=== PATIENT | female | born 1945 | race Caucasian/White ===

== ENCOUNTER → 2019-08-12 10:08 | Outpatient (CLI) | payer MEDICARE, SELFPAY ==
--- NOTE | ~2019-08-12 | XR_ITS ---
EXAMINATION: XR knee RT min 4V DATE: 08/12/2019 10:28 INDICATION: Right knee pain. TECHNIQUE: 5 views of right knee were obtained. COMPARISON: None. FINDINGS: Bone alignment is normal. No fracture. There is mild osteoarthritis of medial compartment. There is chondrocalcinosis of the menisci. No knee joint effusion. IMPRESSION: 1. Mild right knee osteoarthritis. Reviewed, dictated and finalized at location A. 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
== END ==
PROVIDERS: PCP Physician Assistant Medical; Visit Provider Physician Assistant Medical
DX: M17.11 Unilateral primary osteoarthritis, right knee (principal)
CPT/HCPCS: 73564

== ENCOUNTER 2019-09-23 06:34 | Outpatient (CLI) | payer MEDICARE, SELFPAY ==
--- NOTE | ~2019-09-23 | MR_ITS ---
EXAMINATION: MR knee RT wo con DATE: 09/23/2019 07:28 INDICATION: Right knee pain. TECHNIQUE: Magnetic resonance imaging (MRI) of the right knee was performed without intravenous contr ast. Sequences included axial PD-weighted FS FSE, coronal PD-weighted FSE and PD-weighted FS FSE, sag ittal PD-weighted FSE, and sagittal T2-weighted FS FSE. COMPARISON: Right knee radiographs 08/12/2019 FINDINGS: Medial compartment: There is a complex tear involving body and posterior horn of medial meniscus. There is deep partial t hickness cartilage loss of femoral condyle involving the central and medial articular surface. There is deep partial thickness cartilage loss of tibial condyle involving the medial articular surface whe re there is a subchondral insufficiency fracture characterized by a low signal fracture line and surr ounding bone marrow edema. Lateral compartment: Lateral meniscus is normal. Lateral compartment cartilage is normal. Patellofemoral compartment: There is deep partial thickness cartilage loss involving patellar medial and lateral facets and media n ridge with mild subchondral edema-like marrow signal intensity. There is cartilage surface irregula rity of trochlea. Ligaments and tendons: The anterior and posterior cruciate ligaments are normal. There are changes of prior sprains of media l collateral ligament and fibular collateral ligament characterized by thickening and increased signa l intensity proximally. There is mild patellar tendinopathy. Fluid: There is no knee joint effusion. There is a small Dupree's cyst. IMPRESSION: 1. Subchondral insufficiency fracture of medial tibial condyle. 2. Moderate chondrosis of medial and patellofemoral compartments. 3. Tear of medial meniscus. Reviewed, dictated and finalized at location A.
== END 2019-09-23 06:35 | disposition home or self-care (01) ==
PROVIDERS: PCP Family Medicine; Visit Provider Orthopaedic Surgery
DX: S83.241A Other tear of medial meniscus, current injury, right knee, initial encounter (principal); X58.XXXA Exposure to other specified factors, initial encounter
CPT/HCPCS: 73721

== ENCOUNTER 2019-09-29 13:04 | Outpatient (CLI) | payer MEDICARE, SELFPAY ==
--- NOTE | 2019-09-29 13:50 | ECG_ITS ---
Measurements Intervals [place] Rate: 78 P: 58 [place]: 159 QRS: -21 QRSD: 85 T: 15 QT: 367 QTc: 418 Interpretive Statements SINUS RHYTHM LOW QRS VOLTAGE IN PRECORDIAL LEADS VOLTAGE CRITERIA FOR LVH BORDERLINE R WAVE PROGRESSION, ANTERIOR LEADS BASELINE ARTIFACT- II, III, AVL, AVF, V1-V2 BORDERLINE ECG Electronically Signed On 09-29-2019 14:07:28 CDT by Luis Enrique Pardo D.O.
== END 2019-09-29 13:05 | disposition home or self-care (01) ==
LOC: ANHSURGERY 13:08
PROVIDERS: PCP Family Medicine; Visit Provider Orthopaedic Surgery
DX: E78.00 Pure hypercholesterolemia, unspecified (principal); R94.31 Abnormal electrocardiogram [ECG] [EKG]
CPT/HCPCS: 93005

== ENCOUNTER 2019-12-19 00:07 | Outpatient (CLI) | payer MEDICARE, SELFPAY ==
[2019-12-19 15:54] LABS: SARS-CoV-2 RNA PCR Negative
== END 2019-12-19 00:08 | disposition home or self-care (01) ==
LOC: ANHCOVIDDT 00:07
PROVIDERS: PCP Family Medicine; Visit Provider Orthopaedic Surgery
DX: Z01.812 Encounter for preprocedural laboratory examination (principal); Z20.828 Contact with and (suspected) exposure to other viral communicable diseases
CPT/HCPCS: 87635; C9803; U0003

== ENCOUNTER 2019-12-22 03:10 | Day surgery (SDC) | payer MEDICARE, SELFPAY ==
[2019-09-29 13:33] VITALS: BMI 23.8
[2019-12-15 13:31] VITALS: BMI 23.8
--- NOTE | 2019-12-15 13:35 | PC.NURSE ---
PATIENT STATES NO CHANGE IN HEALTH HX FROM LAST INTERVIEW ON 09/29/19
[2019-12-22] VITALS (8 sets, daily range): BP systolic 138–170; BP diastolic 67–96; PULSE 72–109; RESP 14–22; TEMP 36.2–36.5; O2SAT 97–100
[2019-12-22] MEDS: LACTATED RINGERS 1,000 ML 30 ML IV CONT ×2 (12:10→14:44)
--- NOTE | 2019-12-22 12:53 | WPDANESEPPF ---
Anes - Initial Pre Proc Eval Procedure: Operation Date: 12/22/19 13:30 Proposed Procedures p Right Knee Arthroscopy, Partial Medial Meniscectomy - Hudson Angulo MD Date/Time: 12/22/19 12:53 Surgeon: Hudson Angulo MD Pre Op Diagnosis: Right Knee Medial Meniscus Tear Patient Data Age: 74 Gender: F Height: 5 ft Weight: 55.7 kg Last Vital Signs Temp 97.6 F 12/22/19 12:26 Pulse 77 12/22/19 12:26 Resp 16 12/22/19 12:26 BP 145/67 H 12/22/19 12:26 Pulse Ox 99 12/22/19 12:26 Allergies Allergy/AdvReac Type Severity Reaction Status Date / Time No Known Allergies Allergy Mild Verified 12/22/19 11:42 Home Medications Medication Instructions Recorded Confirmed Type cyclosporine 0.05 % eye drops in a 1 drop EACH EYE Q12H 06/18/19 12/22/19 History dropperette fluticasone propionate 50 2 spray NASAL DAILY 06/18/19 12/22/19 History mcg/actuation nasal spray,suspension simvastatin 20 mg tablet 20 mg PO HS 06/18/19 12/22/19 History aspirin 81 mg tablet,delayed 81 mg PO DAILY 08/26/19 12/22/19 History release calcium-vitamin D3-vitamin K 500 1 tablet PO HS 08/26/19 12/22/19 History mg-100 unit-40 mcg chewable tablet cholecalciferol (vitamin D3) 50 50 mcg PO HS 08/26/19 12/22/19 History mcg (2,000 unit) capsule vit C,N-Wk-fmpxu-lutein-zeaxan 1 tablet PO BID 09/29/19 12/22/19 History [PreserVision AREDS-2] levothyroxine 88 mcg tablet 88 mcg PO DAILY #30 tablet 10/01/19 12/22/19 Rx acetaminophen [Tylenol Arthritis 650 mg PO Q12H 12/22/19 12/22/19 History Pain] Patient hx anesthesia problems: none Family hx anesthesia problems: none PMFSH Past Medical History Medical History (Updated 12/22/19 @ 12:47 by Joseph Harp MD) Cataract (09/21/17) 10/10/2017 Other specified acquired hypothyroidism Pure hypercholesterolemia, unspecified Surgical History Surgical History H/O thyroidectomy (2000) 2000 H/O ureterostomy (2011) H/O: hysterectomy (1990) Total History of breast biopsy 1989 Hx of cholecystectomy (1994) 1997 Social History Social History Smoking status: Never smoker Alcohol intake: current Additional living arrangements comments: -Ha Frye Additional occupation/education comments: [employer] Final PreProcedure Day of Procedure 12/22/19 12:53 Patient weight: normal Heart: regular rate and rhythm Lungs: clear to auscultation Airway: Mallampati scale class II Neurological: alert and oriented Last oral intake: >/= 8 hours ASA classification: II Emergent: no Anesthetic plan: proceed Anesthesia type and monitoring: general LMA and standard monitoring Informed Consent: The patient's anesthetic plan and its attendant risks and benefits were discussed with the patient/family/POA. Questions were solicited and answers provided to the satisfaction of the patient/family/POA.
--- NOTE | 2019-12-22 13:16 | WPDHPUPDATE1 ---
History and Physical Update Update Date/Time: 12/22/19 13:16 History and Physical has been reviewed, including an updated exam of the patient. There are NO changes in the patient's condition. Risks, benefits, and alternatives have been discussed and questions answered. Patient agrees to proceed with procedure.
--- NOTE | 2019-12-22 13:23 | SUR.PREOP ---
Up to bathroom.
[2019-12-22] MEDS: ceFAZolin 2 GM/D5W 50 ML 2 GM/50 ML BAG IVPB (13:50)
--- NOTE | 2019-12-22 14:59 | PM.PROC ---
Procedure Note - Detailed Date of procedure: 12/22/19 Pre-op diagnosis: Right Knee Medial Meniscus Tear Post-op diagnosis: same Procedure performed: Right knee arthroscopy with partial medial meniscectomy Description of procedure: The patient was identified and proper site identified. She was taken back to the operating room and transferred to the OR table placing her supine taking care to pad her torso and extremities. After general anesthetic induction and intubation a nonsterile tourniquet was placed high on the right thigh. Right lower extremity was position, prepped and draped in the usual sterile fashion. 10 cc of 0.25% Marcaine was injected into the subcutaneous tissue in the area of the portals. Portals were established in the arthroscopy was carried out. The findings were as follows: Articular cartilage in the anterior compartment showed extensive areas of degenerative changes on both the patellar and femoral side. These were grade 3 and grade 4. There was grade 3 changes in the medial compartment with complex tearing of the medial meniscus. Lateral articular meniscal cartilage was in decent shape. Anterior posterior cruciate ligaments were in continuity. Portion of the medial infrapatellar fat pad was debrided and then cautery used for hemostasis. There was complex tearing of the medial meniscus which was contoured back to a stable rim with a combination of basket forceps and shaver. At the completion of the procedure the ArthroCare Wand was used for hemostasis. The knee was flushed with a copious amount of arthroscopic fluid and equipment was removed. Portals were closed with three O nylon suture and sterile dressing was applied. She tolerated the procedure well. She was awakened, extubated and taken to recovery area in stable condition. There were no known intraoperative complications. It estimated blood loss was negligible. She received perioperative antibiotics. Anesthesia: GLMA Surgeon: Hudson Angulo MD Estimated blood loss (mL): 10 Tourniquet time (min): 0 Drains: No Packing: No Pathology: none sent Complications: No immediate complications Condition: stable Disposition: PACU
== END 2019-12-22 16:55 | disposition home or self-care (01) ==
PROVIDERS: PCP Family Medicine; Visit Provider Orthopaedic Surgery
PROC: (CPT 29870; principal; 2019-12-22 13:30)
DX: M23.331 Other meniscus derangements, other medial meniscus, right knee (principal); M94.261 Chondromalacia, right knee; E78.00 Pure hypercholesterolemia, unspecified; Z79.82 Long term (current) use of aspirin; E89.0 Postprocedural hypothyroidism
CPT/HCPCS: 29881; J0690; J1100; J2405; J2704; J3010; J7120

== ENCOUNTER 2020-01-05 09:45 | Outpatient (RCR) | payer MEDICARE, SELFPAY ==
--- NOTE | 2019-12-24 13:52 | PTOPEVAL ---
PHYSICAL THERAPY EVALUATION AND PLAN OF CARE Thank you for referring Ade Frye to [facility]. I recommend Ade participate in physical therapy 2x/week for 2 weeks followed by 1x/week for 2 more weeks. Please review, sign, date and return this plan of care [place]. I agree with and certify that the following plan of care is medically necessary. Referring Physician Date Attending Provider: Hudson Angulo MD Evaluation Diagnosis right knee arthroscopy/ menisectomy Onset 12/22/2019 Subjective Information 2 days ago received medial Query Text:As Reported By Patient/ menisectomy and arthroscpy. Family Reports no pain today, only taking OTC NSAIDS. Pain Assessment Timing of Pain Assessment Timing of Pain Assessment Assessment Self Report Self Report Pain Level 0 Pain Score Pain Score 0: Self Report Lower Extremity Range of Motion Knee Range of Motion Right Knee Flexion Range of Motion - Active 122 Knee Extension Range of Motion - Active 0 Query Text: Lower Extremity Muscle Strength Testing General Lower Extremity Strength Reason Not Measured WNL/Left,WNL/Right Gross Lower Extremity Strength good quad contraction, tested 4+/5 to MMT Extremity Circumference Assessment Circumference Assessment Location Right Body Part Knee Site Descriptor ([place]) patellar base Circumference (cm) 36 Noninvolved Side Circumference (cm) 36 Balance Assessment CARTY Balance Evaluation Total Score 49/56 Gait Pattern No Deviations/Normal Stair Climbing Assessment Stair Climbing Assessment Stair Climbing Assistive Devices Railings Number of Steps Climbed (Steps) 4 Number of Repetitions (Repetitions) 4 Technique Alternating Steps Stair Climbing Direction Both Up and Down Stair Climbing Ability Independent PT Clinical Summary Kori is a 74 yo female presenting to outpatient physical therapy 2 days s/p right knee arthroscopy with medial menisectomy. She presents today with mildly decreased right knee ROM as well as mildly decreased balance with decreased strength. Will benefit from skilled PT to address these findings as well as provide patient with home exercise program and education. PT Services Indicated
--- NOTE | 2020-01-19 07:57 | PCPTNOTE ---
PHYSICAL THERAPY DISCHARGE Attending Provider: Hudson Angulo MD Patient:Ade Frye Date of :1945 Cheryl attended 4 visits for physical therapy following right knee arthroscopy. She cancelled her remaining appointments as physician released her from therapy. Her account will be discharged at this time. Thank you for referring this patient to [facility]. Please review, sign, date and return this discharge summary [place]. I have been updated about the patient's current status and I agree with discharge from the above service at this time. Referring Physician Date
== END 2020-01-27 13:46 | disposition home or self-care (01) ==
LOC: ANHPT 09:45
PROVIDERS: PCP Family Medicine; Visit Provider Orthopaedic Surgery
DX: M25.561 Pain in right knee (principal); Z98.890 Other specified postprocedural states
CPT/HCPCS: 97110; 97161

== ENCOUNTER 2020-07-06 08:46 | Outpatient (CLI) | payer MEDICARE, SELFPAY ==
--- NOTE | ~2020-07-06 | MM_ITS ---
EXAMINATION: MM screening dante BI w tonny HISTORY: Screening mammogram TECHNIQUE: Craniocaudal and mediolateral oblique 3-D tomosynthesis images were obtained and synthetic 2-D images were generated. CAD analysis was submitted and interpreted. COMPARISON: 07/03/2019, 07/01/2018, 06/28/2017 bilateral digital screening mammogram examinations BREAST PARENCHYMAL COMPOSITION: Stable mild fibroglandular asymmetry. There are scattered bilateral b enign calcifications. FINDINGS: There is stable architectural distortion in the upper left breast, likely related to prior reportedly benign left breast biopsy. Occasional bilateral benign calcifications. There is no evidence of suspicious mass, calcification, o r architectural distortion to suggest malignancy in either breast. There has been no suspicious inter luz change. IMPRESSION: 1. No mammographic evidence of malignancy. 2. Recommend routine screening mammography in one year. BI-RADS Category 2: Benign finding(s). Reviewed, dictated and finalized at location A. ITY CONTROL
--- NOTE | ~2020-07-06 | DEXA_ITS ---
Bone Density Report Name: Ade Frye Age: 75 Sex: Female Ethnicity: White Date of : 1945 Indication: osteopenia; height loss; hysterectomy; Referring Provider: Jerry Barrios Study: Bone densitometry was performed. Exam Date: July 06, 2020 Accession number: [id number] Bone Density: Region BMD T-score Z-score Classification AP Spine (L1-L4) 0.933 -1.0 1.5 Normal Femoral Neck (Left) 0.684 -1.5 0.7 Osteopenia Total Hip (Left) 0.836 -0.9 1.0 Normal Total Hip Bilateral Avg 0.843 -0.8 1.1 Normal Femoral Neck (Right) 0.670 -1.6 0.6 Osteopenia Total Hip (Right) 0.848 -0.8 1.1 Normal World Health Organization criteria for BMD impression classify patients as: Normal (T-score at or above -1.0), Osteopenia (T-score between -1.0 and -2.5), or Osteoporosis (T-score at or below -2.5). 10-year Fracture Risk(1): Major Osteoporotic Fracture 13% Hip Fracture 3.0% Reported Risk Factors: [place] (), Neck BMD=0.670, BMI=24.8 (1) FRAX(R) Version 3.08. Fracture probability calculated for an untreated patient. Fracture probability may be lower if the patient has received treatment. Previous Exams: Region Exam Age BMD T-score BMD Change BMD Change Date g/cm2 vs Baseline vs Previous AP Spine(L1-L4) 07/06/2020 75 0.933 -1.0 0.012(1.3%)# 0.010(1.1%) 07/01/2018 73 0.922 -1.1 0.001(0.1%)# 0.000(0.0%) 06/26/2016 71 0.922 -1.1 0.001(0.1%)# -0.013(-1.4%) 05/26/2014 69 0.935 -1.0 0.014(1.5%)# 0.024(2.6%)# 05/15/2012 67 0.911 -1.2 -0.010(-1.1%)# -0.009(-1.0%)# 04/11/2010 65 0.920 -1.2 -0.001(-0.1%) 0.032(3.6%)* 04/09/2008 63 0.888 -1.4 -0.033(-3.6%)* -0.033(-3.6%)* 06/21/2006 61 0.921 -1.1 Total Hip(Left) 07/06/2020 75 0.836 -0.9 -0.041(-4.6%)# -0.011(-1.3%) 07/01/2018 73 0.847 -0.8 -0.030(-3.4%)# -0.006(-0.7%) 06/26/2016 71 0.853 -0.7 -0.024(-2.8%)# 0.003(0.3%) 05/26/2014 69 0.850 -0.8 -0.027(-3.1%)# 0.004(0.4%)# 05/15/2012 67 0.846 -0.8 -0.031(-3.5%)# -0.037(-4.2%)# 04/11/2010 65 0.884 -0.5 0.007(0.8%) -0.013(-1.5%) 04/09/2008 63 0.897 -0.4 0.020(2.3%) 0.020(2.3%) 06/21/2006 61 0.877 -0.5 Total Hip(Right) 07/06/2020 75 0.848 -0.8 -0.080(-8.6%)# -0.057(-6.3%)* 07/01/2018 73 0.905 -0.3 -0.023(-2.5%)# -0.006(-0.7%) 06/26/2016 71 0.912 -0.2 -0.017(-1.8%)# -0.002(-0.3%) 05/26/2014 69 0.914 -0.2 -0.014(-1.5%)# -0.001(-0.1%)# 05/15/2012 67 0.915 -0.2 -0.013(-1.4%)# -0.032(-3.4%)# 04/11/2010 65 0.947 0.0 0.019(2.0%) 0.017(1.8%) 04/09/2008 63 0.930 -0.1 0.002(0.
== END 2020-07-06 08:47 | disposition home or self-care (01) ==
LOC: ANHIMG 08:48
PROVIDERS: PCP Family Medicine; Visit Provider Family Medicine
DX: Z12.31 Encounter for screening mammogram for malignant neoplasm of breast (principal); Z78.0 Asymptomatic menopausal state
CPT/HCPCS: 77063; 77067; 77080

== ENCOUNTER 2021-05-30 12:43 | Outpatient (CLI) | payer MEDICARE, SELFPAY ==
--- NOTE | ~2021-05-30 | MR_ITS ---
EXAMINATION: MR knee LT wo con DATE: 05/30/2021 13:47 INDICATION: Left knee pain TECHNIQUE: Magnetic resonance imaging (MRI) of the left knee was performed without intravenous contra st. Sequences included coronal PD-weighted FSE, coronal PD-weighted FS FSE, sagittal T2-weighted FSE , sagittal PD-weighted FS FSE and axial PD weighted fat saturated FSE. COMPARISON: Left knee radiographs dated 04/27/2021 FINDINGS: Medial compartment: Complex tear of the posterior body and posterior horn of the medial meniscus. Partial-thickness carti miryam loss with smooth chondral surface along the margins of the medial tibial plateau and along the w eightbearing medial femoral condyle. There is underlying mild cortical irregularity along the articul ar cortex at the central to posterior weightbearing medial femoral condyle. Lateral compartment: Lateral meniscus is normal. Full-thickness cartilage loss with chondral surface regularity and partia l-thickness fissuring at the central to posterior aspect of the lateral tibial plateau. Partial thick ness cartilage loss with smooth chondral surface along the weightbearing lateral femoral condyle. Sma ll region of minimal underlying cortical irregularity at the central weightbearing lateral femoral co ndyle. Patellofemoral compartment: Partial-thickness patellar cartilage loss which involves greater than 50% the cartilage thickness luis armando ng portions of the apical ridge and medial facet. Tiny foci of subarticular edema at the apical ridge . Partial-thickness cartilage loss with smooth chondral surface along the lateral trochlea. There is cartilage swelling and partial-thickness fissuring at the medial trochlea. Ligaments and tendons: Anterior and posterior cruciate ligaments are normal. The fibular collateral ligament is normal. Ther e is mild thickening and mild increased signal of the proximal medial collateral ligament consistent with moderate grade sprain. This age-indeterminate with mild surrounding edema which could be related to acute sprain in the appropriate clinical setting or more likely reactive edema related to the adj acent medial meniscal tear. The extensor mechanism is normal. The visualized medial and lateral hamst ring tendons as well as the iliotibial band are normal. Fluid: Minimal right knee joint effusion at the suprapatellar pouch. No loose osteochondral bodies identifie d. Small Dupree's cyst. Osseous/other: Bone marrow signal is normal aside from the previous noted tiny focus of subarticular edema at the pa tellar apical ridge. No fracture or pathologic marrow replacing process. IMPRESSION: 1. Complex medial meniscal tear. 2. Mild tricompartmental osteoarthritis with regions of moderate to high-grade chondromalacia in all 3 compartments. 3. Age-indeterminate moderate grade sprain of the proximal medial collateral ligament. 4. Small Dupree's cyst. Reviewed, dictated and finalized at location A. PROFESSIONAL IMPRESSION: 1. Complex medial meniscal tear. 2. Mild tricompartmental osteoarthritis with regions of moderate to high-grade chondromalacia in all 3 compartments. 3. Age-indeterminate moderate grade sprain of the proximal medial collateral li gament. 4. Small Dupree's cyst.
== END 2021-05-30 12:44 | disposition home or self-care (01) ==
PROVIDERS: PCP Family Medicine; Visit Provider Orthopaedic Surgery
DX: M71.22 Synovial cyst of popliteal space [Baker], left knee (principal); M17.12 Unilateral primary osteoarthritis, left knee; S83.232D Complex tear of medial meniscus, current injury, left knee, subsequent encounter; X58.XXXD Exposure to other specified factors, subsequent encounter
CPT/HCPCS: 73721

== ENCOUNTER 2021-07-05 07:51 | Outpatient (CLI) | payer MEDICARE, SELFPAY ==
--- NOTE | 2021-07-05 08:00 | ECG_ITS ---
Measurements Intervals [place] Rate: 80 P: 61 [place]: 156 QRS: -22 QRSD: 89 T: 29 QT: 359 QTc: 415 Interpretive Statements SINUS RHYTHM LOW QRS VOLTAGE IN PRECORDIAL LEADS POOR R WAVE PROGRESSION, ANTERIOR LEADS BORDERLINE T WAVE ABNORMALITY- ANTERIOR LEADS BASELINE ARTIFACT- I, III, AVR, AVL BORDERLINE ECG Electronically Signed On 07-05-2021 8:33:24 COLD TYPE ARTIST by Luis Enrique Pardo D.O.
== END 2021-07-05 07:52 | disposition home or self-care (01) ==
LOC: ANHSURGERY 07:56
PROVIDERS: PCP Family Medicine; Visit Provider Orthopaedic Surgery
DX: Z01.810 Encounter for preprocedural cardiovascular examination (principal); E78.00 Pure hypercholesterolemia, unspecified
CPT/HCPCS: 93005

== ENCOUNTER 2021-07-12 00:26 | Day surgery (SDC) | payer MEDICARE, SELFPAY ==
[2021-07-01 14:14] VITALS: BMI 24.8
--- NOTE | 2021-07-01 14:18 | PC.NURSE ---
Report to the Outpatient Waiting Room, entrance under the green pavilion located off [facility], at time __729 on date __07/12/21 . OR Time: . - You and your visitor will be asked a series of questions to screen for COVID 19 for your protection. - A mask is required within the hospital. - Only one visitor is allowed at this time. Patient visitors will be guided where to wait when not with patient. Preoperative COVID Testing Requirements: No COVID Test needed if: (proof is required; if not received patient will have Rapid Test prior to entry) - Patient has received COVID Vaccine at least 14 days prior to procedure date or - Patient has positive COVID test result within last 90 days of surgery date. COVID Test needed if above criteria is not met If not COVID vaccinated a COVID test must be conducted within 72 hours of surgery and patient is asked to isolate self from time of testing until procedure. You will go to the [facility] for your COVID testing. The [facility] site is located at the corner of [address] [facility]. You will only be called if COVID results are positive and your surgeon may reschedule your elective surgery date. Patients may have clear liquids (water, carbonated beverages, clear teas, apple juice) until 3 hours prior to surgery with a maximum of 20 ounces. - No food from midnight until time of surgery - Infants may have breast milk until 4 hours before surgery, infant formula 6 hours prior to surgery. - Children will be allowed to drink immediately following surgery. If applicable, please bring a bottle or sippy cup to assist with drinking. Juice, water, soda, and popsicles are readily available. For infants on formula, please bring formula the day of surgery. Pacifiers are allowed. Take the following medications with a SIP of water the morning of surgery: ____LEVOTHYROXINE, AND EYE DROPS Medications to discontinue per physician __ALL VITAMINS AND SUPPLEMENTS 3 DAYS PRE OP Date to take last dose__07/08/21 Please no make-up, nail pashto, hairspray, perfume, deodorant, or body powder the day of surgery. No jewelry (including any body piercings) or valuables the day of surgery, leave them at home. Please take a shower or bath the night before, or the morning of, surgery with an antibacterial soap. Wear comfortable, loose fitting clothing. Children are encouraged to wear pajamas. - Jewelry must be removed prior to entering the operating room. Rings and piercings that are not removed may be cut off. - The hospital will not accept responsibility for valuables. - Please leave all valuables, including medications, at home the day of surgery. If you are going home after surgery, a licensed courtesy van driver must drive you home. - NO public transportation without another adult. - We recommend that an adult stay with you for 24 hours following discharge. - We also recommend that you do not drive, make important decision, drink alcoholic beverages, or take any drugs that were not prescribed by your health care provider for at least 24 hours after your discharge time. For Pediatric surgeries, we recommend two adults accompany the child home (only one inside the building at this time). Follow any additional instructions given to you from your surgeon. Telephone instructions given to __PATIENT and asked if any additional questions and then verbalized understanding. Patient advised to call surgeon office or pre surgery nurse liaison [phone] if any additional questions.
--- NOTE | 2021-07-11 14:10 | WPDANESEPPF ---
Anes - Initial Pre Proc Eval Procedure: Operation Date: 07/12/21 09:30 Proposed Procedures p Left Knee Arthroscopy, Meniscectomy - Hudson Angulo MD Date/Time: 07/11/21 14:10 Surgeon: Hudson Angulo MD Pre Op Diagnosis: Left Knee Medial Meniscus Tear Patient Data Age: 76 Gender: F Height: 1.52 m Weight: 57.65 kg Allergies Allergy/AdvReac Type Severity Reaction Status Date / Time No Known Allergies Allergy Mild Verified 07/12/21 07:49 Home Medications Medication Instructions Recorded Confirmed Type cyclosporine 0.05 % eye drops in a 1 drop EACH EYE Q12H 06/18/19 07/12/21 History dropperette aspirin 81 mg tablet,delayed 81 mg PO DAILY 08/26/19 07/12/21 History release calcium-vitamin D3-vitamin K 500 2 tablet PO HS 08/26/19 07/12/21 History mg-100 unit-40 mcg chewable tablet cholecalciferol (vitamin D3) 50 50 mcg PO HS 08/26/19 07/12/21 History mcg (2,000 unit) capsule PreserVision AREDS-2 1 tablet PO BID 09/29/19 07/12/21 History acetaminophen [Tylenol Arthritis 650 mg PO Q6-8H 12/22/19 07/12/21 History Pain] levothyroxine 88 mcg tablet 88 mcg PO DAILY #30 tablet 09/28/20 07/12/21 Rx fluticasone propionate 50 See Rx Instructions .ROUTE 03/07/21 07/12/21 Rx mcg/actuation nasal .COMPLEX #16 ml spray,suspension denosumab 60 mg/mL subcutaneous 60 mg SUBCUT [id number] 04/27/21 07/12/21 History syringe simvastatin 20 mg tablet See Rx Instructions .ROUTE 05/06/21 07/12/21 Rx .COMPLEX #90 tablet cetirizine [Zyrtec] 10 mg PO HS 07/01/21 07/12/21 History Patient hx anesthesia problems: none Family hx anesthesia problems: none Results Review: All pre-operative results and documents have been reviewed as part of the pre-operative evaluation. [facility] Past Medical History Medical History (Updated 06/16/21 @ 09:25 by Hudson Angulo MD) Cataract (09/21/17) 10/10/2017 Other specified acquired hypothyroidism Pure hypercholesterolemia, unspecified Tear of medial meniscus of left knee Surgical History Surgical History H/O right knee surgery right knee scope december 2019 H/O thyroidectomy (2000) 2000 H/O ureterostomy (2011) H/O: hysterectomy (1990) Total History of breast biopsy 1989 Hx of cholecystectomy (1994) 1997 Family History Family History Father Diabetes mellitus, Onset Age: 72 Family history of obesity, Onset Age: 72 Cerebrovascular accident, Onset Age: 72 Social History Social History Alcohol intake: current Drinks per week: 3 Alcohol use details: occasional Living arrangements: with family Additional living arrangements comments: -Ha Frye Additional occupation/education comments: [employer] Spiritual care concerns: No Anes - Eval Final PreProcedure Day of Procedure 07/11/21 14:10 Patient weight: normal Heart: regular rate and rhythm Lungs: clear to auscultation and normal air movement Airway: Mallampati scale class II Neurological: alert and oriented Last oral intake: >/= 8 hours ASA classification: II Emergent: no Anesthetic plan: proceed Anesthesia type and monitoring: general LMA and standard monitoring Results Review: All pre-operative results and documents have been reviewed as part of the pre-operative evaluation. Informed Consent: The patient's anesthetic plan and its attendant risks and benefits were discussed with the patient/family/POA. Questions were solicited and answers provided to the satisfaction of the patient/family/POA.
[2021-07-12] VITALS (9 sets, daily range): BP systolic 128–161; BP diastolic 65–86; PULSE 72–92; RESP 12–19; TEMP 36.3–36.6; O2SAT 100
[2021-07-12] MEDS: ACETAMINOPHEN 500 MG TABLET 1000 MG PO (08:02)
[2021-07-12] MEDS: LACTATED RINGERS 1,000 ML 30 ML IV CONT ×2 (08:15→10:44)
[2021-07-12] MEDS: KETOROLAC 15 MG/ML VIAL (*BKC) IV PUSH (08:16)
--- NOTE | 2021-07-12 08:40 | WPDHPUPDATE1 ---
History and Physical Update Update Date/Time: 07/12/21 08:40 History and Physical has been reviewed, including an updated exam of the patient. There are NO changes in the patient's condition. Risks, benefits, and alternatives have been discussed and questions answered. Patient agrees to proceed with procedure.
[2021-07-12] MEDS: ceFAZolin 2 GM/D5W 50 ML 2 GM/50 ML BAG IVPB (09:11)
--- NOTE | 2021-07-12 10:22 | W.PM.PROC2 ---
Procedure Note - Detailed Date of Procedure 07/12/21 Pre-op Diagnosis Left Knee Medial Meniscus Tear Post-op Diagnosis same Procedure Performed left knee arthroscopy, partial medial meniscectomy Surgeon Hudson Angulo MD Anesthesia general Description of Procedure The patient was identified and proper site identified and she was taken to the operating room, transferred to the OR table placing her supine taking care to pad the torso and extremities. After general anesthetic induction and intubation, a nonsterile tourniquet was placed high on the left thigh but was not inflated. The left lower extremity was positioned, prepped and draped in usual sterile fashion. 10 cc of 1% lidocaine was injected into the subcutaneous tissue in the area of the portals at start of the procedure, and an additional 10 at the end. The portals were established and the arthroscopy was carried out. articular cartilage in all three compartments showed extensive grade 2 changes but was most pronounced anteriorly and medially. There was extensive chondrocalcinosis involving both medial and lateral menisci. Lateral meniscus showed fraying at the apex but was otherwise in reasonable shape. Anterior posterior cruciate ligaments were in continuity. Medial meniscus a complex tearing posterior horn into the midbody. This was contoured back to stable rim with basket forceps and a shaver. There was also some hypertrophic synovial focally overlying the anterior horn of the medial meniscus which was debrided in the ArthroCare Wand used for hemostasis. There was a large synovial flap adjacent to the medial margin of the articular surface at the medial femoral condyle. This was resected and an ArthroCare Wand used for hemostasis. The knee was flushed with a copious amount of arthroscopic fluid and equipment was removed. Portals were closed with three O nylon suture and a sterile dressing was applied. She tolerated the procedure well, was awakened, extubated and taken to recovery area in stable condition. There were no known intraoperative complications. Estimated blood loss was negligible; she received perioperative antibiotics. Estimated Blood Loss -15.0 Tourniquet Time 0 Drains No Packing No Pathology none sent Complications No immediate complications Condition stable Disposition PACU
== END 2021-07-12 12:05 | disposition home or self-care (01) ==
PROVIDERS: PCP Family Medicine; Visit Provider Orthopaedic Surgery
PROC: (CPT 29870; principal; 2021-07-12 09:30)
DX: M23.322 Other meniscus derangements, posterior horn of medial meniscus, left knee (principal); M11.262 Other chondrocalcinosis, left knee; E78.00 Pure hypercholesterolemia, unspecified; E03.9 Hypothyroidism, unspecified; Z79.82 Long term (current) use of aspirin
CPT/HCPCS: 29881; 93005; A9270; J0690; J1100; J1885; J2370; J2405; J2704; J3010; J7120

== ENCOUNTER 2021-07-21 15:45 | Outpatient (RCR) | payer MEDICARE, SELFPAY ==
--- NOTE | 2021-07-14 16:21 | PTOPEVAL ---
PHYSICAL THERAPY EVALUATION AND PLAN OF CARE Thank you for referring Ade Frye to [facility].? The patient is scheduled to be seen for therapy? 1x/week for 3 weeks. Please review, sign, date and return this plan of care [place]. I agree with and certify that the following plan of care is medically necessary. Referring Physician Date Attending Provider: Hudson Angulo MD Evaluation Diagnosis left complex medial menisectomy Onset 07/12/2021 Subjective Information no specfici injury. Had this Query Text:As Reported By Patient/ same surgery on the other leg. Family She is using a standard walker today. There does seem to be quite a bit of swelling in the leg and down to the ankle. Left Knee(s) Reported Pain Level 5 Pain Description Aching Pain Score Pain Score 5: Self Report Interventions Used Interventions Used By Clinicians Exercise,Ice Pain Relief Interventions Used By Elevation,Ice Patient Lower Extremity Range of Motion Knee Range of Motion Left Knee Flexion Range of Motion - Active 105 Knee Extension Range of Motion - Active -5 Query Text: Lower Extremity Muscle Strength Testing Hip Strength Left Hip Flexion Strength 4+ Good + Hip Abduction Strength 4 Good Hip Adduction Strength 4 Good Knee Strength Left Knee Flexion Strength 4+ Good + Knee Extension Strength 3 Fair Knee Strength Comments fair quad set Gait Assessment Gait Assessment Ambulation Assistive Devices Walker, Standard Ambulation Distance 1500 Query Text:(Feet) Ambulation Direction Forward Ambulation Ability Independent General Exercise General Exercises Side Left Exercise Location knee Exercise Type Active Exercise Description -SAQ Query Text:Record Sets, Reps, -SLR with quad set Resistance, and Position -quad set [id number] -clamshell Rehab Teaching Rehab Teaching Teaching Topic Rehab Teaching Topic Components Follow-up Recommendations,Home Program As Pertains To Plan of Care Discussion,Safety ,Technique,Therapy Prognosis Recipient Patient Learning Preferences Demonstration,Discussion Barriers to Learning None Readiness to Learn Good Response Returns Demonstration, Verbalizes
--- NOTE | 2021-07-26 13:44 | PCPTNOTE ---
PHYSICAL THERAPY DISCHARGE NOTE Attending Provider: Hudson Angulo MD Patient:Ade Frye Date of :1945 Ade followed up with Dr. Angulo this morning and she was instructed to cancel her remaining appointments and to continue exercises at home. She will be d/c'd from care at this time. Patient?s initial visit was on 07/14/2021 had a total of 2 visits. Thank you for referring this patient to [facility]. Please review, sign, date and return this discharge summary [place]. I have been updated about the patient's current status and I agree with discharge from the above service at this time. Referring Physician Date
== END 2021-07-27 17:01 | disposition home or self-care (01) ==
LOC: ANHPT 15:45
PROVIDERS: PCP Family Medicine; Visit Provider Orthopaedic Surgery
DX: S83.232D Complex tear of medial meniscus, current injury, left knee, subsequent encounter (principal)
CPT/HCPCS: 97110; 97116; 97161; 97530

== ENCOUNTER 2021-08-04 09:37 | Outpatient (CLI) | payer MEDICARE, SELFPAY ==
--- NOTE | ~2021-08-04 | MM_ITS ---
EXAMINATION: MM screening dante BI w tonny HISTORY: Screening TECHNIQUE: Craniocaudal and mediolateral oblique 3-D tomosynthesis images were obtained and synthetic 2-D images were generated. CAD analysis was submitted and interpreted. COMPARISON: Comparison to multiple prior studies sequentially, with oldest reviewed study dated 05/16. BREAST PARENCHYMAL COMPOSITION: There are scattered areas of fibroglandular density. FINDINGS: There is no evidence of suspicious mass, calcification, or architectural distortion to sugg est malignancy in either breast. There has been no suspicious interval change. IMPRESSION: 1. No mammographic evidence of malignancy. 2. Recommend routine screening mammography in one year. BI-RADS Category 1: Negative Reviewed, dictated and finalized at location A. ROLLER
== END 2021-08-04 09:38 | disposition home or self-care (01) ==
LOC: ANHIMG 09:39
PROVIDERS: PCP Family Medicine; Visit Provider Family Medicine
DX: Z12.31 Encounter for screening mammogram for malignant neoplasm of breast (principal)
CPT/HCPCS: 77063; 77067

== ENCOUNTER 2021-08-23 12:33 | Outpatient (CLI) | payer MEDICARE, SELFPAY ==
--- NOTE | ~2021-08-23 | US_ITS ---
EXAMINATION: US venous doppler LE EXAM DATE: 08/23/2021 13:13 INDICATION: Leg Pain/Swelling, Acute Embolism And Thrombosis Of Unspecif TECHNIQUE: Multiple grayscale, color flow and Doppler images of the lower extremity deep venous syste ms bilaterally were obtained and reviewed. There is no prior study for comparison. FINDINGS: Right side: The right common femoral, femoral and profunda veins demonstrate normal color flow, respi ratory variation, augmentation and compressibility. Compressibility, color flow confirmed within the right popliteal, posterior tibial, peroneal, and greater saphenous veins. Left side: The left common femoral, femoral and profunda veins demonstrate normal color flow, respira tory variation, augmentation and compressibility. Compressibility, color flow confirmed within the l eft popliteal, posterior tibial, peroneal, and greater saphenous veins. There is a Dupree's cyst markell uring 2.4 x 2.3 x 5.6 cm. IMPRESSION: 1. No lower extremity deep venous thrombosis bilaterally. 2. Moderate-sized left Dupree's cyst. Reviewed, dictated and finalized at location B. CE [employer] PROGRAM COORDINATOR
== END 2021-08-23 12:34 | disposition home or self-care (01) ==
PROVIDERS: PCP Family Medicine; Visit Provider Family Medicine
DX: M79.89 Other specified soft tissue disorders (principal); M71.22 Synovial cyst of popliteal space [Baker], left knee
CPT/HCPCS: 93970

== ENCOUNTER 2022-08-07 09:46 | Outpatient (CLI) | payer MEDICARE, SELFPAY ==
--- NOTE | ~2022-08-07 | DEXA_ITS ---
Bone Density Report Name: SRAVANTHI SALDANA Age: 77 Sex: Female Ethnicity: White Date of : 1945 Indication: monitoring treatment; height loss; hysterectomy; postmenopausal Referring Provider: MARCIAL SINGH Study: Bone densitometry was performed. Exam Date: August 07, 2022 Accession number: [id number] Bone Density: Region BMD T-score Z-score Classification AP Spine(L1-L4) 1.024 -0.2 2.4 Normal Femoral Neck (Left) 0.691 -1.4 0.9 Osteopenia Total Hip (Left) 0.819 -1.0 1.0 Normal Femoral Neck (Right) 0.717 -1.2 1.1 Osteopenia Total Hip (Right) 0.881 -0.5 1.5 Normal Total Hip Mean 0.850 -0.8 1.3 Normal World Health Organization criteria for BMD impression classify patients as: Normal (T-score at or above -1.0), Osteopenia (T-score between -1.0 and -2.5), or Osteoporosis (T-score at or below -2.5). 10-year Fracture Risk: FRAX not reported because: Treated for osteoporosis Previous Exams: Region Exam Age BMD T-score BMD Change BMD Change Date g/cm2 vs Baseline vs Previous AP Spine (L1-L4) 08/07/2022 77 1.024 -0.2 0.089 (9.5%)* 0.091 (9.8%)* 07/06/2020 75 0.933 -1.0 -0.002 (-0.2%) 0.010 (1.1%) 07/01/2018 73 0.922 -1.1 -0.013 (-1.3%) 0.000 (0.0%) 06/26/2016 71 0.922 -1.1 -0.013 (-1.4%) -0.013 (-1.4%) 05/26/2014 69 0.935 -1.0 Total Hip(Left) 08/07/2022 77 0.819 -1.0 -0.031 (-3.6%) -0.017 (-2.0%) 07/06/2020 75 0.836 -0.9 -0.014 (-1.6%) -0.011 (-1.3%) 07/01/2018 73 0.847 -0.8 -0.003 (-0.3%) -0.006 (-0.7%) 06/26/2016 71 0.853 -0.7 0.003 (0.3%) 0.003 (0.3%) 05/26/2014 69 0.850 -0.8 Total Hip(Right) 08/07/2022 77 0.881 -0.5 -0.033 (-3.6%) 0.033 (3.8%)* 07/06/2020 75 0.848 -0.8 -0.066 (-7.2%) -0.057 (-6.3%) 07/01/2018 73 0.905 -0.3 -0.009 (-1.0%) -0.006 (-0.7%) 06/26/2016 71 0.912 -0.2 -0.002 (-0.3%) -0.002 (-0.3%) 05/26/2014 69 0.914 -0.2 *Denotes significance at 95% confidence level, LSC for AP Spine = 0.022 g/cm2, LSC for Total Hip = 0.027 g/cm2 Clinical Information Provided by Patient: Is being treated for osteoporosis Has used the following medications: Prolia (i.e. denosumab), Vitamin D, Calcium Has the following medical conditions: Hysterectomy Patient maximum height was 62 Menopause Age: 47 Drinks caffeinated beverages Onset of menses at age 10 Number of children 0 Impression: The patient has low bone mass, based on
--- NOTE | ~2022-08-07 | MM_ITS ---
EXAMINATION: MM screening dante BI w tonny HISTORY: Screening mammogram TECHNIQUE: Craniocaudal and mediolateral oblique 3-D tomosynthesis images were obtained and synthetic 2-D images were generated. CAD analysis was submitted and interpreted. COMPARISON: 08/04/2021, 07/06/2020, 07/03/2019 bilateral screening mammogram examinations BREAST PARENCHYMAL COMPOSITION: There are scattered areas of fibroglandular density. FINDINGS: There is stable left fibroglandular asymmetry, likely related to previous left-sided report edly benign breast biopsy (radial scar). There is no evidence of suspicious mass, calcification, or n ew architectural distortion to suggest malignancy in either breast. There has been no suspicious inte rval change. IMPRESSION: 1. No mammographic evidence of malignancy. 2. Recommend routine screening mammography in one year. BI-RADS Category 2: Benign finding(s). Reviewed, dictated and finalized at location A. LTC
== END 2022-08-07 09:47 | disposition home or self-care (01) ==
LOC: ANHIMG 09:47
PROVIDERS: PCP Family Medicine; Visit Provider Family Medicine
DX: Z12.31 Encounter for screening mammogram for malignant neoplasm of breast (principal); Z78.0 Asymptomatic menopausal state; M85.852 Other specified disorders of bone density and structure, left thigh; M85.851 Other specified disorders of bone density and structure, right thigh
CPT/HCPCS: 77063; 77067; 77080

== ENCOUNTER 2023-05-03 11:50 | Outpatient (CLI) | payer MEDICARE, SELFPAY ==
--- NOTE | 2023-05-03 12:55 | ECG_ITS ---
Measurements Intervals Lucas Rate: 67 P: 56 AK: 152 QRS: -15 QRSD: 85 T: 20 QT: 385 QTc: 409 Interpretive Statements SINUS RHYTHM LOW QRS VOLTAGE IN PRECORDIAL LEADS [QRS DEFLECTION < 1.0 mV IN CHEST LEADS] BORDERLINE ECG COMPARED TO ECG 07/05/2021 08:14:54 NO SIGNIFICANT CHANGES Electronically Signed On 05-03-2023 17:23:09 CDT by Mehdi Valladares M.D.
[2023-05-03 13:24] LABS: Basophils Absolute Auto 0.1 K/mm3 (0.0-0.1); Basophils Percent Auto 1.1 % (0.2-1.2); Eosinophils Absolute Auto 0.2 K/mm3 (0-0.3); Eosinophils Percent Auto 2.4 % (0-4.4); Hematocrit 42.6 % (37.0-47.0); Hemoglobin 13.2 g/dL (12.0-15.0); Immature Granulocyte Absolute 0.01 K/mm3 (0.00-0.031); Immature Granulocyte Percent A 0.2 % (0-0.5); Lymphocytes Absolute Auto 1.09 K/mm3 (0.9-3.2); Lymphocytes Percent Auto 16.5 % (18.3-44.2); Mean Corpuscular Volume 90.4 fl (80-100); Mean Platelet Volume 9.8 fl (7.4-10.4); Monocytes Absolute Auto 0.6 K/mm3 (0.1-0.6); Monocytes Percent Auto 8.3 % (2.6-8.5); Neutrophils Absolute Auto 4.7 K/mm3 (1.3-6.7); Neutrophils Percent Auto 71.5 % (45.5-73.1); Platelet Count Result 278 k/mm3 (150-375); Red Blood Count 4.71 M/mm3 (4.2-5.4); Red Cell Distribution Width 14.1 % (11.5-14.5); White Blood Count 6.6 K/mm3 (4.5-10.0)
[2023-05-03 13:34] LABS: Alanine Aminotransferase 24 U/L (6-35); Albumin Level 4.6 g/dL (3.5-5.1); Alkaline Phosphatase 53 U/L (38-126); Anion Gap 5 mmol/L (8-16); Aspartate Amino Transferase 29 U/L (14-36); Bilirubin,Total 0.3 mg/dL (0.2-1.3); Blood Urea Nitrogen 24 mg/dL (7-17); Calcium 9.6 mg/dL (8.4-10.2); Carbon Dioxide 31 mmol/L (22-30); Chloride 101 mmol/L (98-107); Estimated Glomerular Filt Rate > 60; Glucose 110 mg/dL (65-110); Potassium 4.4 mmol/L (3.4-5.0); Sodium 137 mmol/L (137-145)
[2023-05-03 13:36] LABS: Prothrombin Time 13.3 Seconds (11.1-14.7)
[2023-05-03 13:37] LABS: Partial Thromboplastin Time 29.8 SECONDS (22.3-36.8)
== END 2023-05-03 11:51 | disposition home or self-care (01) ==
LOC: ANHSURGERY 11:57
PROVIDERS: PCP Family Medicine; Visit Provider Urology
DX: Z01.818 Encounter for other preprocedural examination (principal); R93.1 Abnormal findings on diagnostic imaging of heart and coronary circulation; E78.2 Mixed hyperlipidemia; N81.9 Female genital prolapse, unspecified; R39.9 Unspecified symptoms and signs involving the genitourinary system
CPT/HCPCS: 36415; 80053; 85025; 85610; 85730; 86850; 86900; 86901; 87086; 87088; 93005

== ENCOUNTER 2023-05-18 01:43 | Day surgery (SDC) | payer MEDICARE, SELFPAY ==
--- NOTE | 2023-05-03 11:20 | PC.NURSE ---
PRE-OP INSTRUCTIONS, PLEASE READ CAREFULLY Report to the Outpatient Waiting Room, entrance under the green pavilion located off [facility], at time _0615_ on date _05/18/23_. Planned Procedure Time: _0815_. PACK A SMALL OVERNIGHT BAG AND LEAVE IN THE CAR Time changes happen often and if your time is changed the preop area will call you the afternoon before. - You and your visitor will be asked to self-screen and do not enter if you have any COVID symptoms. - A mask is optional within the hospital at this time. Patients may have clear liquids (water, carbonated beverages, clear teas, apple juice) until 3 hours prior to surgery with a maximum of 20 ounces. - No food from midnight until time of surgery Take the following medications with a SIP of water the morning of surgery: _LEVOTHYROXINE, EYE DROPS & TYLENOL, NASAL SPAY IF NEEDED_ DO NOT STOP ANY OF YOUR OTHER PRESCRIPTION MEDICATIONS PRIOR TO SURGERY ?EXCEPT THE FOLLOWING Medications to discontinue per DR. WISEMAN - _VITAMINS/SUPPLEMENTS 7 DAYS PRIOR TO SURGERY, Date to take last dose 05/10/23 AND ASPIRIN 5 DAYS PRIOR TO SURGERY, Date to take last dose 05/12/23 Please no make-up, nail azeri, hairspray, perfume, deodorant, or body powder the day of surgery. No jewelry (including any body piercings) or valuables the day of surgery, leave them at home. Please take a shower or bath the night before, or the morning of, surgery with an antibacterial soap. Wear comfortable, loose fitting clothing. - Jewelry must be removed prior to entering the operating room. Rings and piercings that are not removed may be cut off. - The hospital will not accept responsibility for valuables. - Please leave all valuables, including medications, at home the day of surgery. If you are going home after surgery, a licensed straddle truck driver must drive you home. - NO public transportation without another adult if you receive anesthesia. - We recommend that an adult stay with you for 24 hours following discharge. - We also recommend that you do not drive, make important decision, drink alcoholic beverages, or take any drugs that were not prescribed by your health care provider for at least 24 hours after your discharge time. Follow any additional instructions given to you from your surgeon. If you or anyone in your household have experienced Covid symptoms in the past week, please notify your surgeon or the nurse liaison at the phone number below for possible testing. Instructions given to _PATIENT_and asked if any additional questions and then verbalized understanding. Patient advised to call surgeon office or pre surgery nurse liaison [phone] if any additional questions.
[2023-05-03 12:20] VITALS: BP 168/58; PULSE 74; RESP 18; TEMP 36.8; O2SAT 100; BMI 23.3
--- NOTE | 2023-05-17 04:16 | PM.IMHP ---
H&P: HPI History of Present Illness Date/Time: 05/17/23 04:16 Chief Complaint: POP/LIYA Narrative: post hyst POP and LIYA due to ISD. No longer wants to use a pessary. Not sexually active Review of Systems Review of Systems: All systems reviewed & are unremarkable except as noted in HPI and below PMFSH Past Medical History Medical History Cataract (09/21/17) 10/10/2017 Other specified acquired hypothyroidism Pain in left knee Pure hypercholesterolemia, unspecified Tear of medial meniscus of left knee Surgical History Surgical History H/O right knee surgery right knee scope december 2019 H/O thyroidectomy (2000) 2000 H/O ureterostomy (2011) H/O: hysterectomy (1990) Total History of arthroscopy of left knee medial meniscectomy July 12, 2021 History of breast biopsy 1989 Hx of cholecystectomy (1994) 1997 Hx of lithotripsy Family History Family History Father Diabetes mellitus, Onset Age: 72 Family history of obesity, Onset Age: 72 Cerebrovascular accident, Onset Age: 72 Social History Social History Smoking status: Never smoker Second hand tobacco smoke exposure: No Alcohol intake: current Drinks per week: 3 Alcohol use details: NONE SINCE JANUARY 2023 Substance use: never Substance use type: does not use Living arrangements: with family Additional living arrangements comments: -Ha Frye Occupation/Education: retired Additional occupation/education comments: [employer] Spiritual care concerns: No Meds Home Medications and Allergies Home Medications Medication Instructions Recorded Confirmed Type cyclosporine 0.05 % eye drops in a 1 drop ophthalmic (eye) Q12H 06/18/19 05/03/23 History dropperette (Restasis) aspirin 81 mg tablet,delayed 81 mg PO DAILY 08/26/19 05/03/23 History release (Adult Low Dose Aspirin) calcium-vitamin D3-vitamin K 500 2 tablet PO HS 08/26/19 05/03/23 History mg-100 unit-40 mcg chewable tablet cholecalciferol (vitamin D3) 50 50 mcg PO HS 08/26/19 05/03/23 History mcg (2,000 unit) capsule vit C 250 mg-vit E 90 mg-zinc 40 1 tablet PO BID 09/29/19 05/03/23 History mg-copper 1 ic-goevde-lcaqby capsule (PreserVision AREDS-2) acetaminophen 650 mg 1,300 mg PO BID PAIN 12/22/19 05/03/23 History tablet,extended release (Tylenol Arthritis Pain) denosumab 60 mg/mL subcutaneous 60 mg subcut [id number] 04/27/21 05/03/23 History syringe (Prolia) cetirizine 10 mg tablet (Zyrtec) 10 mg PO HS 07/01/21 05/03/23 History fluticasone propionate 50 See Rx Instructions .Route 11/24/22 05/03/23 Rx mcg/actuation nasal .COMPLEX #16 mL spray,suspension levothyroxine 88 mcg tablet See Rx Instructions .Route 05/14/23 Rx .COMPLEX #90 tabs simvastatin 20 mg tablet See Rx Instructions .Route 05/14/23 Rx .COMPLEX #90 tabs Allergies Allergy/AdvReac Type Severity Reaction Status Date / Time povidone-iodine Allergy Mild Rash Verified 05/03/23 12:12 [From Betadine] Exam Narrative: NAG apext at +3 fixed urethra normal breathing Assessment and Plan Assessment and plan (1) Prolapse of vaginal vault after hysterectomy: Code(s): N99.3 - Prolapse of vaginal vault after hysterectomy Status: Acute (2) Intrinsic sphincter deficiency (ISD): Code(s): N36.42 - Intrinsic sphincter deficiency (ISD) Status: Acute Plan colpocleisis and bulking agent. bleeding, infection, damage to other structures, recurrence, retentions, voiding dysfunction, recurrent liya, inability to have penetrative intercourse all discussed
[2023-05-18] VITALS (9 sets, daily range): BP systolic 128–158; BP diastolic 61–81; PULSE 64–81; RESP 12–16; TEMP 36.4–36.5; O2SAT 98–100; BMI 22.8
[2023-05-18] MEDS: LACTATED RINGERS 1,000 ML 30 ML IV CONT ×2 (07:10→09:13)
--- NOTE | 2023-05-18 07:12 | WPDHPUPDATE1 ---
History and Physical Update Update Date/Time: 05/18/23 07:12 History and Physical has been reviewed, including an updated exam of the patient. There are NO changes in the patient's condition. Risks, benefits, and alternatives have been discussed and questions answered. Patient agrees to proceed with procedure.
--- NOTE | 2023-05-18 07:22 | WPDANESEPPF ---
Anes - Initial Pre Proc Eval Procedure: Operation Date: 05/18/23 07:30 Proposed Procedures p Colpocleisis, - Bridger Naranjo MD s Cystoscopy with Bulkamid Injection - Bridger Naranjo MD Date/Time: 05/18/23 07:22 Surgeon: Bridger Naranjo MD Pre Op Diagnosis: prolapse vaginal vault, sphincter insufficiency Patient Data Age: 78 Gender: F Height: 1.52 m Weight: 53.1 kg Last Vital Signs Temp 97.7 F 05/18/23 06:02 Pulse 81 05/18/23 06:02 Resp 16 05/18/23 06:02 BP 152/73 H 05/18/23 06:02 Pulse Ox 100 05/18/23 06:02 O2 Del Method Room Air 05/18/23 06:02 Allergies Allergy/AdvReac Type Severity Reaction Status Date / Time povidone-iodine Allergy Mild Rash Verified 05/18/23 06:56 [From Betadine] Home Medications Medication Instructions Recorded Confirmed Type cyclosporine 0.05 % eye drops in a 1 drop ophthalmic (eye) Q12H 06/18/19 05/18/23 History dropperette (Restasis) aspirin 81 mg tablet,delayed 81 mg PO DAILY 08/26/19 05/18/23 History release (Adult Low Dose Aspirin) calcium-vitamin D3-vitamin K 500 2 tablet PO HS 08/26/19 05/18/23 History mg-100 unit-40 mcg chewable tablet cholecalciferol (vitamin D3) 50 50 mcg PO HS 08/26/19 05/18/23 History mcg (2,000 unit) capsule vit C 250 mg-vit E 90 mg-zinc 40 1 tablet PO BID 09/29/19 05/18/23 History mg-copper 1 [id number] capsule (PreserVision AREDS-2) acetaminophen 650 mg 1,300 mg PO BID PAIN 12/22/19 05/18/23 History tablet,extended release (Tylenol Arthritis Pain) denosumab 60 mg/mL subcutaneous 60 mg subcut [id number] 04/27/21 05/18/23 History syringe (Prolia) cetirizine 10 mg tablet (Zyrtec) 10 mg PO HS 07/01/21 05/18/23 History fluticasone propionate 50 See Rx Instructions .Route 11/24/22 05/18/23 Rx mcg/actuation nasal .COMPLEX #16 mL spray,suspension levothyroxine 88 mcg tablet See Rx Instructions .Route 05/14/23 05/18/23 Rx .COMPLEX #90 tabs simvastatin 20 mg tablet See Rx Instructions .Route 05/14/23 Rx .COMPLEX #90 tabs Patient hx anesthesia problems: none and post op nausea/vomiting Family hx anesthesia problems: none Results Review: All pre-operative results and documents have been reviewed as part of the pre-operative evaluation. [facility] Past Medical History Medical History Cataract (09/21/17) 10/10/2017 Other specified acquired hypothyroidism Pain in left knee Pure hypercholesterolemia, unspecified Tear of medial meniscus of left knee Surgical History Surgical History H/O right knee surgery right knee scope december 2019 H/O thyroidectomy (2000) 2000 H/O ureterostomy (2011) H/O: hysterectomy (1990) Total History of arthroscopy of left knee medial meniscectomy July 12, 2021 History of breast biopsy 1989 Hx of cholecystectomy (1994) 1997 Hx of lithotripsy Family History Family History Father Diabetes mellitus, Onset Age: 72 Family history of obesity, Onset Age: 72 Cerebrovascular accident, Onset Age: 72 Social History Social History Smoking status: Never smoker Second hand tobacco smoke exposure: No Alcohol intake: current Drinks per week: 3 Alcohol use details: NONE SINCE JANUARY 2023 Substance use: never Substance use type: does not use Living arrangements: with family Additional living arrangements comments: -[facility] Occupation/Education: retired Additional occupation/education comments: [employer] Spiritual care concerns: No Anes - Eval Final PreProcedure Day of Procedure 05/18/23 07:22 Patient weight: normal Heart: regular rate and rhythm Lungs: clear to auscultation Airway: Mallampati scale class II Neurological: alert and oriented Last oral int
[2023-05-18] MEDS: ceFAZolin 2 GM/D5W 50 ML 2 GM/50 ML BAG IVPB (07:29)
[2023-05-18] MEDS: LIDOCAINE HCL 2% GEL UROJET 10 ML PKG MUCOUS MEM (07:56)
[2023-05-18] MEDS: BUPIVACAINE/EPINEPHRINE 0.5% 10 ML VIAL 40 ML INFILTRATE (07:57)
--- NOTE | 2023-05-18 08:59 | W.PM.PROC2 ---
Procedure Note - Detailed Date of Procedure 05/18/23 Pre-op Diagnosis Cystocele, rectocele, prolapse vaginal vault, intrinsic sphincter insufficiency Post-op Diagnosis Same Procedure Performed Cystocele repair, rectocele repair, colpocleisis, cystoscopy with injection of suburethral implant material Surgeon Bridger Naranjo MD Anesthesia General Indications This is a woman with posthysterectomy prolapse as well as intrinsic sphincter deficiency. She presents for the above. She understands risks of bleeding, infection, recurrence, down with strand organs, fistula, postoperative voiding dysfunction including incontinence and retention of a need for ancillary procedures, inability to have penetrative intercourse. She agrees to proceed Findings Vaginal vault prolapse, intrinsic sphincter deficiency Description of Procedure She has correctly identified. Informed consent was obtained. She was from the operating room. She was given general anesthesia. She was placed in dorsal lithotomy position. She was given appropriate perioperative antibiotics. She was prepped and draped in sterile fashion. All pressure points were padded. A time-out was performed. I placed a [place] retractor. I placed Lutz catheter. She had cystocele, rectocele, vaginal vault prolapse beyond the introitus. I grasped the prolapse with Allis clamps. I rosina 2 rectangle shaped areas. One on the anterior wall. One on the posterior wall. I anesthetized the posterior vaginal wall with local mixed with epinephrine saline. I removed the mucosa off the posterior vaginal wall taking great care to leave underlying structures into not injure underlying structures. I did the same on the anterior vaginal wall. I then performed a plication type cystocele and rectocele repair. I did this in a pursestring fashion performing a colpocleisis. This completely reduced the prolapse. I then used 0 Vicryl in a horizontal mattress interrupted fashion to close mucosa to mucosa completing the prolapse repair. I took great care throughout this to not injure underlying organs. I was happy with the prolapse support I then turned my attention to the perineorrhaphy. I anesthetized a linda-shaped area of skin on the perineum. I removed this area of skin. I performed a perineorrhaphy with interrupted 0 Vicryl sutures. I used a 2-0 Vicryl to close mucosa to mucosa completing the perineorrhaphy. There was excellent perineal support. There was narrowing of the vagina which was appropriate I then performed cystoscopy. She had mild trabeculations. No bladder abnormalities. Both ureters were patent. I documented patency by passing the guidewires up both ureters. Her urethra is open consistent with intrinsic sphincter deficiency. She also has a fixed urethra consistent with intrinsic sphincter deficiency I then turned my attention towards the bulking agent. I chose a site urethra the 2 cm distal bladder neck. I injected bulking agent circumferentially. I used a 1 syringe portal. There was excellent bulking effect. Her bladder was left partially full. She was awakened transferred to PACU in stable condition. Estimated Blood Loss 20 Drains No Packing No Pathology None sent Complications No immediate complications Condition Stable Disposition PACU
== END 2023-05-18 11:20 | disposition home or self-care (01) ==
PROVIDERS: PCP Family Medicine; Visit Provider Urology
PROC: (CPT 57120; principal; 2023-05-18 07:30)
PROC: 3E0K8GC Introduction of Other Therapeutic Substance into Genitourinary Tract, Via Natural or Artificial Opening Endoscopic (ICD-10-PCS; CPT 57260; 2023-05-18 07:30)
DX: N99.3 Prolapse of vaginal vault after hysterectomy (principal); N36.42 Intrinsic sphincter deficiency (ISD); E78.00 Pure hypercholesterolemia, unspecified; E03.9 Hypothyroidism, unspecified; Z79.82 Long term (current) use of aspirin
CPT/HCPCS: 57260; 51715; 36415; 80053; 85025; 85610; 85730; 86850; 86900; 86901; 87086; 87088; 93005; C1758; C1769; J0690; J1100; J2405; J2704; J7030; J7120; L8606

== ENCOUNTER 2023-08-21 12:12 | Outpatient (CLI) | payer MEDICARE, SELFPAY ==
--- NOTE | ~2023-08-21 | XR_ITS ---
EXAMINATION: XR sacrum coccyx min 2V INDICATION: Low back pain TECHNIQUE: Three views of the sacrum and coccyx are obtained. COMPARISON: 06/18/2019 FINDINGS: The sacrum and coccyx appear unremarkable. There is moderate lumbar spondylosis with interv al worsening at L4-5. No fracture is identified. IMPRESSION: 1. No acute osseous abnormality. Reviewed, dictated and finalized at location L. C PASTOR
--- NOTE | ~2023-08-21 | XR_ITS ---
EXAMINATION: XR lumbar spine min 4V DATE: 08/21/2023 12:38 INDICATION: Low back pain TECHNIQUE: Anteroposterior, lateral, and bilateral oblique views of the lumbar spine, and cone-down l ateral view of the lumbosacral junction were obtained. COMPARISON: 06/18/2019 FINDINGS: There are 7 mm of anterolisthesis of L4 on L5. There is moderate loss of intervertebral dis c space height at L4-5 with interval worsening. There is no fracture. The vertebral body heights are maintained. There is mild loss of intervertebral disc space height at L2-3 and L3-4. 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 IMPRESSION: 1. Moderate lumbar spondylosis with interval worsening at L4-5. Reviewed, dictated and finalized at location L. ICE TECHNICIAN COPIER
== END 2023-08-21 12:13 | disposition home or self-care (01) ==
LOC: ANHIMG 12:16
PROVIDERS: PCP Family Medicine; Visit Provider Physician Assistant
DX: M43.06 Spondylolysis, lumbar region (principal); M53.3 Sacrococcygeal disorders, not elsewhere classified; W19.XXXD Unspecified fall, subsequent encounter
CPT/HCPCS: 72110; 72220

== ENCOUNTER 2023-09-05 09:36 | Outpatient (CLI) | payer MEDICARE, SELFPAY ==
--- NOTE | ~2023-09-05 | MM_ITS ---
EXAMINATION: MM screening dante BI w tonny HISTORY: Screening TECHNIQUE: Craniocaudal and mediolateral oblique 3-D tomosynthesis images were obtained and synthetic 2-D images were generated. CAD analysis was submitted and interpreted. COMPARISON: Comparison to multiple prior studies sequentially, with oldest reviewed study dated 06/15. BREAST PARENCHYMAL COMPOSITION: Not dense: There are scattered areas of fibroglandular density. FINDINGS: The left breast is stable without evidence for malignancy. There is a new focal asymmetry i n the medial aspect of the right breast on CC view. IMPRESSION: 1. New focal right breast asymmetry medially on CC view. 2. Additional mammographic views and possible breast ultrasound are recommended. BI-RADS Category 0: Incomplete: Needs additional imaging evaluation. Reviewed, dictated and finalized at location A. BODY SORTER IMPRESSION: 1. New focal right breast asymmetry medially on CC view. 2. Additional mammographic views and possible breast ultrasound are recommended . BI-RADS Category 0: Incomplete: Needs additional imaging evaluation.
== END 2023-09-05 09:37 | disposition home or self-care (01) ==
LOC: ANHIMG 09:40
PROVIDERS: PCP Family Medicine; Visit Provider Family Medicine
DX: Z12.31 Encounter for screening mammogram for malignant neoplasm of breast (principal); R92.8 Other abnormal and inconclusive findings on diagnostic imaging of breast
CPT/HCPCS: 77063; 77067

== ENCOUNTER 2023-10-08 12:43 | Outpatient (CLI) | payer MEDICARE, SELFPAY ==
--- NOTE | ~2023-10-08 | MMUS_ITS ---
EXAMINATION: MM diagnostic dante RT w tonny, US breast RT complete HISTORY: New focal right breast mammographic asymmetry reported in the medial aspect on CC view. TECHNIQUE: Additional 3-D tomosynthesis images of the right breast were performed and synthetic 2-D i mages were generated. CAD analysis was submitted and interpreted. High resolution complete right [address] ultrasound examination including all 4 quadrants and subareolar area performed. COMPARISON: September 05, 2023 bilateral screening mammogram FINDINGS: MAMMOGRAPHIC FINDINGS: Several benign appearing calcifications measuring up to 1.6 mm are noted in close association in the anterior upper outer left breast. ULTRASOUND: Corresponding to the area of calcifications in the upper outer quadrant at 11:00 4 cm from the nipple is a circumscribed lobular Mass Measuring Approximately 11 x 6 x 10 Mm Dimension with several calcif ications. 11:00 4 cm from nipple: 2.1 x 2.32 2.7 mm circumscribed hypoechoic lesion without internal vascularit y or posterior shadowing, probably benign 5:00 3 cm from nipple: Circumscribed V-shaped hypoechogenicity without internal vascularity, likely b enign tissue. IMPRESSION: 1. Probable benign findings 2. Six-month diagnostic right mammogram and right breast ultrasound follow-up are recommended BI-RADS category 3, probably benign findings. Reviewed, dictated and finalized at location A. IMPRESSION: 1. Probable benign findings 2. Six-month diagnostic right mammogram and right breast ultrasound follow-up a re recommended BI-RADS category 3, probably benign findings.
== END 2023-10-08 12:44 | disposition home or self-care (01) ==
LOC: ANHIMG 12:44
PROVIDERS: PCP Family Medicine; Visit Provider Family Medicine
DX: R92.8 Other abnormal and inconclusive findings on diagnostic imaging of breast (principal)
CPT/HCPCS: 76641; 77061; 77065; G0279

== ENCOUNTER 2024-04-09 10:37 | Outpatient (CLI) | payer MEDICARE, SELFPAY ==
--- NOTE | ~2024-04-09 | MMUS_ITS ---
EXAMINATION: MM diagnostic dante RT w tonny, US breast RT limited HISTORY: Follow-up right breast mass TECHNIQUE: Additional 3-D tomosynthesis images of the right breast were performed and synthetic 2-D i mages were generated. CAD analysis was submitted and interpreted. High resolution Limited right breas t ultrasound was performed. COMPARISON: Comparison to multiple prior studies sequentially, with oldest reviewed study dated 08/07. BREAST PARENCHYMAL COMPOSITION: Not dense: There are scattered areas of fibroglandular density. FINDINGS: MAMMOGRAPHIC FINDINGS: Right breast asymmetries in the upper outer quadrant of the right breast are not significantly change d from prior examination. No new masses, calcifications or architectural distortion in the right [address] to suggest malignancy. ULTRASOUND: Complete US of all 4 quadrants of the breast/s and retroareolar region was reviewed. At 11:00, 3 cm f rom the nipple there is an oval slightly lobulated hypoechoic mass with internal calcifications measu ring 1.3 x 1.2 x 0.6 cm compared with 1.1 x 1 x 0.6 cm on prior examination. There are posterior feat ures. IMPRESSION: 1. Increased size of solid lobulated hypoechoic right breast mass at 11:00, 3 cm from the nipple. 2. Ultrasound-guided right breast biopsy recommended. BI-RADS category 4, suspicious findings. Reviewed, dictated and finalized at location B. IMPRESSION: 1. Increased size of solid lobulated hypoechoic right breast mass at 11:00, 3 c m from the nipple. 2. Ultrasound-guided right breast biopsy recommended. BI-RADS category 4, suspicious findings.
== END 2024-04-09 10:38 | disposition home or self-care (01) ==
LOC: ANHIMG 10:41
PROVIDERS: PCP Family Medicine; Visit Provider Physician Assistant
DX: R92.8 Other abnormal and inconclusive findings on diagnostic imaging of breast (principal)
CPT/HCPCS: 76642; 77061; 77065; G0279

== ENCOUNTER 2024-04-28 08:34 | Outpatient (CLI) | payer MEDICARE, SELFPAY ==
--- NOTE | ~2024-04-28 | MMUS_ITS ---
US breast biopsy RT w image, MM post biopsy diagnostic RT EXAMINATION: US GUIDED NEEDLE BIOPSY WITH VACUUM ASSISTANCE DATE: 04/28/2024 10:07 CDT INDICATION: Right breast mass seen on prior examination. Ultrasound-guided core biopsy is requested to evaluate for malignancy. BREAST PARENCHYMAL COMPOSITION: Dense: The breasts are heterogeneously dense, which may obscure small masses TECHNIQUE AND FINDINGS: The risks and potential benefits of the procedure were discussed with the patient, and written inform ed consent was obtained. After sterile preparation of the right breast, 1% lidocaine was utilized fo r local anesthesia. 1% lidocaine with epinephrine was used for deep anesthesia. A 10G vacuum-assisted biopsy gun needle was advanced through to the outer edge of the region of inter est from a superior approach utilizing sonographic guidance. A total of three tissue core samples we re obtained through the lesion. An Inrad tissue marker clip was then placed at the biopsy site. Hemo stasis was achieved. The patient tolerated procedure well and there was no evidence of immediate complication. The patien t was given verbal instructions partly is from the department. Right breast mammograms to document t issue marker clip placement. The tissue samples were submitted to surgical pathology for histologic a nalysis. IMPRESSION: 1. Successful ultrasound-guided vacuum-assisted biopsy of right breast mass with post procedure mamm ogram for marker placement. Please refer to pathology report for histologic analysis. Reviewed, dictated and finalized at location B. IMPRESSION: 1. Successful ultrasound-guided vacuum-assisted biopsy of right breast mass wi th post procedure mammogram for marker placement. Please refer to pathology rep ort for histologic analysis.
== END 2024-04-28 08:35 | disposition home or self-care (01) ==
PROVIDERS: PCP Family Medicine; Visit Provider Physician Assistant Medical
DX: D24.1 Benign neoplasm of right breast (principal); N63.10 Unspecified lump in the right breast, unspecified quadrant; R92.8 Other abnormal and inconclusive findings on diagnostic imaging of breast
CPT/HCPCS: 19083; 77065; 88305; A4648

== ENCOUNTER 2024-09-15 15:09 | Outpatient (CLI) | payer MEDICARE, SELFPAY | END 2024-09-15 15:10 | disposition home or self-care (01) | LOC: ANHIMG 15:13 | PROVIDERS: PCP Family Medicine; Visit Provider Family Medicine | DX: Z12.31 Encounter for screening mammogram for malignant neoplasm of breast (principal) | CPT/HCPCS: 77063; 77067 ==

== ENCOUNTER 2024-09-23 13:58 | Outpatient (CLI) | payer MEDICARE, SELFPAY ==
--- NOTE | ~2024-09-23 | DEXA_ITS ---
Bone Density Report Name: SRAVANTHI SALDANA Age: 79 Sex: Female Ethnicity: White Date of : 1945 Indication: postmenopausal; screening for osteoporosis; height loss; hysterectomy; Referring Provider: LIZETH SHOOK Study: Bone densitometry was performed. Exam Date: September 23, 2024 Accession number: [id number] Bone Density: Region BMD T-score Z-score Classification AP Spine(L1, L2, L3) 1.011 -0.1 2.6 Normal Femoral Neck (Left) 0.745 -0.9 1.4 Normal Total Hip (Left) 0.845 -0.8 1.3 Normal Femoral Neck (Right) 0.715 -1.2 1.2 Osteopenia Total Hip (Right) 0.923 -0.2 2.0 Normal Total Hip Mean 0.884 -0.5 1.7 Normal World Health Organization criteria for BMD impression classify patients as: Normal (T-score at or above -1.0), Osteopenia (T-score between -1.0 and -2.5), or Osteoporosis (T-score at or below -2.5). 10-year Fracture Risk: FRAX not reported because: Treated for osteoporosis Clinical Information Provided by Patient: Is being treated for osteoporosis Has used the following medications: Prolia (i.e. denosumab), Vitamin D, Calcium Has the following medical conditions: Hysterectomy Patient maximum height was 62 Menopause Age: 47 Drinks caffeinated beverages Onset of menses at age 10 Number of children 0 Impression: The patient has low bone mass, based on the Right Femoral Neck T-score. Discussion: It is important to ask patients whether they are taking their medications and to encourage continued and appropriate compliance with their osteoporosis therapies to reduce fracture risk. It is also important to review their risk factors and encourage appropriate calcium and vitamin D intakes, exercise, fall prevention and other lifestyle measures. Follow-Up: Consider a repeat BMD and Vertebral Fracture Assessment (VFA) exam in 2 years or sooner if medically necessary, to reassess this patient's status. Reported by: AICHA on 09/24/2024 7:50:00 AM. Reviewed, dictated and finalized at location [facility]
--- OUTSIDE RECORDS SUMMARY | 2024-09-23 15:47 | XMS_ITS ---
Author Organization [facility] Address [address] [place], [place] [id number] Care Team Providers Care Metallurgical Engineering Teacher Name Role Phone USMANLIZETH YUN Unavailable [phone] Vega Delgado Unavailable Unavailable REASON FOR VISIT *Porokeratosis check Vital Signs Weight 116 lbs 2024 Weight-kg 52.62 kg 2024 Height 60 in 2024 Height-cm 152.4 cm 2024 BMI 22.65 kg/m2 2024 Encounters Encounter Location Date Provider Diagnosis [facility] [address] [place], [place] [id number] 2024 LIZETH REJI Metatarsalgia of right foot M77.41 ; Other eccrine sweat disorders L74.8 and Pain in right foot M79.671 Assessments Encounter Date Diagnosis (ICD Code) Assessment Notes Treatment Notes Treatment Clinical Notes Section Notes 2024 Metatarsalgia of right foot (ICD-10 - M77.41) 2024 Other eccrine sweat disorders (ICD-10 - L74.8) 2024 Pain in right foot (ICD-10 - M79.671) 2024 Other Pyrogallic Acid: Lesions were debrided and pyrogallic acid was applied to the area. Patient was advised to keep dry for 3 days. Plan Of Treatment Treatment Notes Assessment Notes Other Pyrogallic Acid: Les ions were debrided and pyrogallic acid was applied to the area. Patient was advised to keep dry for 3 days. Progress Notes * JEMIMA SALDANANEDOB: [birth year] (79 yo F)Acc No.[id number]:2024 Patient: SRAVANTHI CARVAJAL Provider: Len Briggs DPM :1945 A ge:79 Y S ex:Female Date:2024 Address:[address] [place] [address], [id number] Subjective: * Chief Complaints: * 1 . *Porokeratosis check. * HPI: H PI: Follow Up Visit P atient presents for follow-up visit for porokeratosis on her right foot. Patient states the skin has peeled off. Patient states their problem is improving. She doesn't think it really needs anything done to it today. MA: sea. * Medical History: D iabetic. * Surgical History: T hyroid , Knee , Kidney Sones . * Family History: F ather: , stroke, gout, diabetic,. M other: , heart disease, varicose veins. S ister: alive, blood clots, rheumatoid arthritis, hypertenstion. Objective: * Vitals: W t: 116 lbs, Wt-k.62 kg, Ht: 60 in, Ht-cm: 152.4 cm, BMI: 22.65 Index, Body Surface Area: 1.49. * Examination: C onstitutional: Constitutional T he patient is awake, alert, well developed, well groomed and well nourished. . D ermatologic: Skin findings: S kin is warm, dry, supple with no breaks in the skin. . Nail pathology: N ails 1-5 bilateral are normal in appearance and thickness. No discoloration. . Ulcer: T here is no evidence of ulceration noted at this time . Hyperkeratotic Skin Lesion T here is evidence of hyperkeratotic skin lesions present on the plantar aspect of the 4th metatarsal head right . ? M usculoskeletal: Muscle Strength M uscle strength is 5/5 in regards to dorsiflexion, plantarflexion, inversion, and eversion in bilateral lower extremities. . Foot Structure T he foot structure is noted to be normal bilaterally . Pain on palpation T here is no pain on palpation . Gait T here is normal gait noted . N eurologic: Muscle power: 5 /5 bilaterally . Gross sensation G ross sensation is intact to light touch. . V ascular: Dorsalis pedis pulse: 2 /4 bilateral . Posterior tibial pulse: 2 /4 bilaterally . Capillary refill: l ess than 3 seconds bilaterally . Temperature gradient: w ithin normal limits . ? Assessment: * Assessment: 1. M etatarsalgia of right foot - M77.41 (Primary) 2 . O ther eccrine sweat disorders - L74.8 3 . P ain in right foot - M79.671 Plan: * Treatment: * Billing Information: * Visit Code: 32228 Office Visit, Est Pt., Level 3. * Procedure Codes: * Sign off status: Completed true * Provider: Len Briggs DPM Date: 0 2024 Generated for Abiodun foss/Jamar/Sapna on: 0 09/23/2024 03:47 PM CDT History and Physical Notes * HPI (History of Present Illness) Category Sub-Category Detail Notes Category Not es HPI Follow Up Visit Patient presents for follow-up visit for porokeratosis on her right foot. Patient states the skin has peeled off. Patient states their problem is improving. She doesn't think it really needs anything done to it today. MA: sea Examination Category Sub-Category Detail Notes Category Not es Constitutional Constitutional The patient is a wake, alert, well developed, well groomed and well nourished. Dermatologic Skin findings: Skin is warm, dr y, supple with no breaks in the skin. Nail pathology: Nails 1-5 bilateral are normal in appearance and thickness. No discoloration. Ulcer: There is no evidence of ulceration noted at this time Hyperkeratotic Skin Lesion There is evid ence of hyperkeratotic skin lesions present on the plantar aspect of the 4th metatarsal head right Musculoskeletal Muscle Strength Muscle strength is 5/5 in regards to dorsiflexion, plantarflexion, inversion, and eversion in bilateral lower extremities. Pain on palpation There is no pain on palpation Foot Structure The foot structure i s noted to be normal bilaterally Gait There is normal gait noted Neurologic Muscle power: 5/5 bilaterally Gross sensation Gross sensation is i ntact to light touch. Vascular Dorsalis pedis pulse: 2/4 bilateral Posterior tibial pulse: 2/4 bilaterally Capillary refill: less than 3 seconds bilaterally Temperature gradient: within normal limi ts
--- OUTSIDE RECORDS SUMMARY | 2024-09-23 15:47 | XMS_ITS | Patient Health Record ---
Author Organization [facility] Address [address] [facility] [address] [place], [place] [id number] Care Team Providers Care Inventory Control Analyst Name Role Phone LIZETH MENDOZA Unavailable [phone] Vega Delgado Unavailable Unavailable Reason For Referral No Information Vital Signs Height-cm 152.4 cm 2024 Weight-kg 52.62 kg 2024 Height 60 in 2024 Weight 116 lbs 2024 BMI 22.65 kg/m2 2024 Encounters Encounter Location Date Provider Diagnosis [facility] [address] [place], [place] [id number] 02/21/2024 LIZETH USMANTENCHANG Metatarsalgia of right foot M77.41 ; Other eccrine sweat disorders L74.8 and Pain in right foot M79.671 [facility] [address] [place], [place] [id number] 2024 LIZETH USMANTENBURG Metatarsalgia of right foot M77.41 ; Other eccrine sweat disorders L74.8 and Pain in right foot M79.671 Assessments Encounter Date Diagnosis (ICD Code) Assessment Notes Treatment Notes Treatment Clinical Notes Section Notes 02/21/2024 Other eccrine sweat disorders (ICD-10 - L74.8) 02/21/2024 Metatarsalgia of right foot (ICD-10 - M77.41) 2024 Metatarsalgia of right foot (ICD-10 - M77.41) 2024 Other eccrine sweat disorders (ICD-10 - L74.8) 02/21/2024 Pain in right foot (ICD-10 - M79.671) 2024 Pain in right foot (ICD-10 - M79.671) 02/21/2024 Other Pyrogallic Acid: Lesions were debrided and pyrogallic acid was applied to the area. Patient was advised to keep dry for 3 days. 2024 Other Pyrogallic Acid: Lesions were debrided and pyrogallic acid was applied to the area. Patient was advised to keep dry for 3 days. Plan Of Treatment No Information Insurance Providers Payer Name Payer Address Payer Phone Subscriber Number Group Number Insured Name Patient Relationship to Insured Coverage Start Date Coverage End Date [employer] [address] [place] [phone] [id number] SRAVANTHI SALDANA Self - patient is the insured Medical (General) History Medical History History ICD Code Diabetic Surgical History Surgery Date(Month/Year) Thyroid Knee Kidney Sones
--- OUTSIDE RECORDS SUMMARY | 2024-09-23 15:47 | XMS_ITS ---
Author Organization [facility] Address [address] [place], [place] [id number] Care Team Providers Care Composition Siding Worker Name Role Phone LIZETH BRIGGS Unavailable [phone] Vega Delgado Unavailable Unavailable REASON FOR VISIT LEFT FOOT Vital Signs Weight 116 lbs 02/21/2024 Weight-kg 52.62 kg 02/21/2024 Height 60 in 02/21/2024 Height-cm 152.4 cm 02/21/2024 BMI 22.65 kg/m2 02/21/2024 Encounters Encounter Location Date Provider Diagnosis [facility] [address] [place], [place] [id number] 02/21/2024 LIZETH USMANFILIPPOCHANG Metatarsalgia of right foot M77.41 ; Other eccrine sweat disorders L74.8 and Pain in right foot M79.671 Assessments Encounter Date Diagnosis (ICD Code) Assessment Notes Treatment Notes Treatment Clinical Notes Section Notes 02/21/2024 Metatarsalgia of right foot (ICD-10 - M77.41) 02/21/2024 Other eccrine sweat disorders (ICD-10 - [...] days. Progress Notes * JEMIMA SALDANANEDOB: [birth year] (78 yo F)Acc No.[id number]:02/21/2024 Progress Notes Patient: SRAVANTHI CARVAJAL Provider: Len Briggs DPM :1945 A ge:78 Y S ex:Female Date:02/21/2024 Address:[address] [place] [address], [id number] Subjective: * Chief Complaints: * 1 . LEFT FOOT. * HPI: H PI: New Complaint P atient presents for a new patient consultation. Patient complains of an issue to the ball of her right foot She has a painful spot that she has been putting off, but now it is starting to bother her. Duration of problem is 6 months. Patient denies any injury. MA: sea. * Medical History: D iabetic. * Surgical History: T hyroid , Knee , Kidney Sones . * Family History: F ather: , stroke, gout, diabetic,. M other: , heart disease, varicose veins. S ister: alive, blood clots, rheumatoid arthritis, hypertenstion. Objective: * Vitals: S hoe Size: 7, Wt: 116 lbs, Wt-k.62 kg, Ht: 60 in, [...] Treatment: * Billing Information: * Visit Code: 01678 Office Visit, New Pt., Level 3. * Procedure Codes: * Sign off status: Completed true * Provider: Len Briggs DPM Date: 0 02/21/2024 Generated for Abiodun foss/Jamar/Sapna on: 0 09/23/2024 03:47 PM CDT History and Physical Notes * HPI (History of Present Illness) Category Sub-Category Detail Notes Category Not es HPI New Complaint Patient presents for a new patient consultation. Patient complains of an issue to the ball of her right foot She has a painful spot that she has been putting off, but now it is starting to bother her. Duration of problem is 6 months. Patient denies any injury. MA: sea Examination Category Sub-Category Detail Notes [...]
--- OUTSIDE RECORDS SUMMARY | 2024-09-23 15:47 | XMS_ITS | Clinical Summary ---
Author Organization [facility] Address [address] Ward: Epic Prelude ADT [place]ON [address] Care Team Providers Care Dining Manager Name Role Phone Unavailable Primary Care Provider Unavailabl e Allergies No known active allergies Medications cycloSPORINE (RESTASIS) 0.05 % emulsion Instill one drop in both eyes twice daily 60 Each 12 12/14/2022 9:53 AM CDT 05/08/2022 Active penicillin V potassium (VEETID) 500 mg tablet Take 1 tablet by mouth four times daily until gone 40 Tablet 1 12/21/2022 10:48 AM CDT 12/21/2022 Active docusate sodium (COLACE) 100 mg capsule Take 1 Capsule (100 mg) by mouth 2 times daily. 60 Capsule 05/18/2023 12:11 PM CDT 05/18/2023 Active HYDROcodone-vinciio taminophen (NORCO) 5-325 mg tablet Take 1 Tablet by mouth every 6 hours as needed for pain. 20 Tablet 05/18/2023 12:11 PM CDT 05/18/2023 Active cycloSPORINE (Restasis) 0.05 % emulsion Instill one drop into both eyes twice a day. 180 Each 4 06/13/2023 11:11 AM [employer] INST[employer]ER 06/11/2023 Active penicillin V potassium (VEETID) 500 mg tablet Take 1 Tablet (500 mg) by mouth 4 times daily until gone. 40 Tablet 1 08/14/2023 2:22 PM [employer] 07/04/2023 Active methylPREDNISol one (MEDROL DOSPACK) 4 mg Tablets, Dose Pack TAKE DIRECTED ON PACKAGE. 21 Each 08/21/2023 2:16 PM [employer]ER 08/21/2023 Active fluticasone propionate (FLONASE) 50 mcg/spray [place], Suspension nasal inhaler USE 2 SPRAYS IN EACH NOSTRIL ONCE DAILY 16 Gram 6 08/13/2024 3:21 PM [employer]ER 01/21/2024 Active levothyroxine 88 mcg tablet TAKE ONE TABLET BY MOUTH ONCE DAILY 90 Tablet 2 08/13/2024 3:21 PM [employer]ER 02/22/2024 Active simvastatin (ZOCOR) 20 mg tablet TAKE ONE TABLET BY MOUTH AT BEDTIME 90 Tablet 2 08/13/2024 3:21 PM [employer] IN[employer]ER 02/22/2024 Active chlorhexidine gluconate 0.12 % Mouthwash Swish and spit 10-15 ML by mouth twice daily for 1 week before and after surgery 473 mL 02/22/2024 2:20 PM CDT 02/22/2024 Active amoxicillin (AMOXIL) 500 mg capsule TAKE 4 CAPSULES BY MOUTH 1 HOUR PRIOR TO SURGERY 4 Capsule 02/22/2024 2:20 PM CDT 02/21/2024 Active Social History Tobacco Use Types Packs/Day Years Used Date Smoking Tobacco: Never Assessed Comments Unknown Sex and Gender Information Value Date Recorded Sex Assigned at Not on file Legal Sex Female 3:27 PM CDT Gender Identity Not on file Sexual Orientation Not on file Plan of Treatment Health Maintenance Due Date Last Done Comments DTAP/TDAP/TD VACCINES (1 - Tdap) 1962 PNEUMOCOCCAL VACCINE 50+ YEARS (1 of 1 - PCV) 03/13/19 93 ZOSTER VACCINE (1 of 2) 1993 OSTEOPOROSIS SCREENING 2008 RSV VACCINE (60+ or ) (1 - 1-dose 75+ series) 2018 INFLUENZA VACCINE (#1) 2024 Insurance RX [employer] Medicare Part D RX [employer] (INTERNAL) [facility]
== END 2024-09-23 13:59 | disposition home or self-care (01) ==
LOC: ANHIMG 14:00
PROVIDERS: PCP Family Medicine; Visit Provider Physician Assistant
DX: M85.851 Other specified disorders of bone density and structure, right thigh (principal); Z78.0 Asymptomatic menopausal state
CPT/HCPCS: 77080